=== PATIENT | female | born 1940 | race Caucasian/White ===

== ENCOUNTER 2023-04-02 16:56 | Inpatient (IN) | payer BC, MEDICAID, OTHER ==
[~2023-04-02] VITALS: Ht 160 cm; Wt 76.2 kg
[2023-04-02] MEDS: VANCOMYCIN HCL 1,000 MG in NS 250 ML IV ONE (01:41)
[~2023-04-02 16:56] MED LIST: ASPIRIN; BENA-6 PO; SIMV-43 PO
[2023-04-02 16:58] VITALS: BP_SYST 130; PULSE 181; RESP 19; TEMP 98.2; O2SAT 94
[2023-04-02] MEDS: dilTIAZem HCL IVP 5 MG/ML VIAL IVP ONE ×2 (17:35→18:22)
[2023-04-02 17:46] LABS: HEMATOCRIT 43.9 % (36-48); HEMOGLOBIN 14.6 g/dL (12.0-16.0); MEAN CORPUSCULAR HEMOGLOBIN 31 pg (27-31); MEAN CORPUSCULAR HGB CONC 33 % (32-36); MEAN CORPUSCULAR VOLUME 94 fL (79.0-98.0); PLATELET COUNT (AUTO) 209 K/uL (130-430); RED BLOOD CELL COUNT(AUTO) 4.68 MIL/uL (4.2-6.2); RED CELL DISTRIBUTION WIDTH 13.2 % (9.0-15.0); WHITE BLOOD COUNT (AUTO) 19.5 K/uL (4.8-10.8)
[2023-04-02 18:14] LABS: ANION GAP 11 (5-15); CALCIUM 10.1 mg/dL (8.4-11.0); CARBON DIOXIDE 25 mmol/L (23-29); CHLORIDE 99 mmol/L (98-107); CREATININE 1.63 mg/dL (0.55-1.30); GLUCOSE 210 mg/dL (74-106); POTASSIUM 3.1 mmol/L (3.5-5.1); SODIUM SERUM 135 mmol/L (136-145); UREA NITROGEN, BLOOD 57 mg/dL (8-21)
[2023-04-02 18:21] LABS: ALANINE AMINOTRANSFERASE 36 U/L (12-78); ASPARTATE AMINOTRANSFERASE 21 U/L (10-37); TOTAL PROTEIN, SERUM 6.5 g/dL (6.4-8.3)
[2023-04-02] MEDS: NACL 0.9% 3,000 ML IV STA (18:27)
[2023-04-02 18:33] LABS: BAND % (MANUAL) 13 % (0-6); BASOPHILS % (MANUAL) 0 % (0-2); EOSINOPHILS % (MANUAL) 1 % (0-7); LYMPHOCYTES % (MANUAL) 4 % (20-46); MONOCYTES % (MANUAL) 5 % (0-11)
[2023-04-02 18:34] LABS: INR 1.1 (0.8-1.2); OVALOCYTES FEW; PLATELET ESTIMATE ADEQUATE (ADEQUATE); PROTHROMBIN TIME 11.7 SECS (9.5-12.5); TEAR DROP CELLS FEW
[2023-04-02] MEDS ORDERED: PIPERACILLIN/TAZOBACTAM 3.375 GM/VIAL (ZOSYN) IV ONE (18:43)
[2023-04-02] MEDS: PIPERACILLIN/TAZO 3.375 GM in NS 50 ML IV ONE (18:47)
[2023-04-02] MEDS ORDERED: AMIODARONE HCL 150 MG/3ML VIAL ONE (19:43)
[2023-04-02] MEDS: KCL 20 mEq in 100 mL (PREMIX) 100 ML IV ONE (19:45)
[2023-04-02] MEDS: AMIODARONE HCL 150 MG in D5W 97 ML IV ONE (19:55)
[2023-04-02] MEDS: AMIODARONE HCL 450 MG in D5W 241 ML IV ONE (20:18)
[2023-04-02] MEDS ORDERED: VANCOMYCIN HCL 1000 MG/VIAL IV ONE (21:05)
[2023-04-02] MEDS: METOPROLOL TARTRATE 5 MG/5 ML VIAL IVP ONE (21:13)
[2023-04-02] MEDS: NACL 0.9% 1,000 ML IV ONE (21:25)
[2023-04-02] MEDS: D5/0.45 NS 1,000 ML IV SCH (23:00)
[2023-04-02] MEDS: METOPROLOL SUCCINATE 25 MG TAB.SR.24H (TOPROL XL) PO SCH (23:30)
[2023-04-02 23:35] VITALS: BP_SYST 116; PULSE 140; RESP 16; TEMP 97.5; O2SAT 95
[2023-04-03] VITALS (23 sets, daily range): BP systolic 99–171; PULSE 88–142; RESP 19–29; TEMP 97.1–97.7; O2SAT 91–98
[2023-04-03] MEDS: METOPROLOL SUCCINATE 25 MG TAB.SR.24H (TOPROL XL) PO ONE (00:10)
[2023-04-03] MEDS: VANCOMYCIN HCL 1000 MG/VIAL IV ONE (01:40)
[2023-04-03] MEDS: AMIODARONE HCL 450 MG/9 ML VIAL IV ONE (05:20)
[2023-04-03 05:43] LABS: BILIRUBIN,URINE 2+ (NEGATIVE); BLOOD, URINE NEGATIVE (NEGATIVE); GLUCOSE,URINE NEGATIVE (NEGATIVE); KETONES,URINE TRACE (NEGATIVE); LEUKOCYTE ESTERASE ,URINE NEGATIVE (NEGATIVE); NITRITE, URINE NEGATIVE (NEGATIVE); PROTEIN URINE TRACE (NEGATIVE)
[2023-04-03 05:54] LABS: INFLUENZA TYPE A Negative (NEGATIVE); INFLUENZA TYPE B NEGATIVE (NEGATIVE)
[2023-04-03 06:00] LABS: CLARITY/URINE CLEAR (CLEAR); COLOR,URINE AMBER (YELLOW)
[2023-04-03 06:03] LABS: BACTERIA,URINE RARE /HPF (None Seen); RBC,URINE 0-3 /HPF (0-3); WBC,URINE 0-3 /HPF (0-3)
[2023-04-03] MEDS: AMIODARONE HCL 450 MG in D5W 241 ML IV SCH (06:30)
[2023-04-03 08:00] LABS: ANION GAP 13 (5-15); CALCIUM 8.6 mg/dL (8.4-11.0); CARBON DIOXIDE 22 mmol/L (23-29); CHLORIDE 105 mmol/L (98-107); CREATININE 1.25 mg/dL (0.55-1.30); GLUCOSE 206 mg/dL (74-106); POTASSIUM 3.2 mmol/L (3.5-5.1); SODIUM SERUM 140 mmol/L (136-145); UREA NITROGEN, BLOOD 51 mg/dL (8-21)
[2023-04-03] MEDS: DIGOXIN 0.5 MG/2 ML AMP IVP ONE ×2 (10:11→21:18)
[2023-04-03] MEDS: POTASSIUM CHLORIDE 20 MEQ TABLET.ER PO ONE (11:03)
[2023-04-03] MEDS: PIPERACILLIN/TAZO 4.5GM/DEX-IS 100 ML IV SCH (14:11)
[2023-04-03] MEDS: METOPROLOL TARTRATE 25 MG TABLET PO SCH (14:12)
[2023-04-03] MEDS: DIGOXIN 0.125 MG TABLET PO ONE (15:43)
[2023-04-03] MEDS: APIXABAN 2.5 MG TABLET PO SCH (21:16)
[2023-04-04] VITALS (23 sets, daily range): BP systolic 110–163; PULSE 87–119; RESP 19–35; TEMP 97.1–99; O2SAT 93–96
[2023-04-04 05:20] LABS: LYMPHOCYTES # (AUTO) 0.7 K/uL (1.0-5.5); LYMPHOCYTES % (AUTO) 3.6 % (20.5-51.5); MEAN CORPUSCULAR HEMOGLOBIN 31 pg (27-31); MEAN CORPUSCULAR HGB CONC 33 % (32-36); MEAN CORPUSCULAR VOLUME 94 fL (79.0-98.0); MONOCYTES % (AUTO) 4.8 % (1.7-9.3); NEUTROPHILS # (AUTO) 18.6 K/uL (1.8-7.7); NEUTROPHILS % (AUTO) 91.6 % (40.0-70.0); PLATELET COUNT (AUTO) 199 K/uL (130-430); RED BLOOD CELL COUNT(AUTO) 3.94 MIL/uL (4.2-6.2); RED CELL DISTRIBUTION WIDTH 13.5 % (9.0-15.0); WHITE BLOOD COUNT (AUTO) 20.3 K/uL (4.8-10.8)
[2023-04-04 09:22] LABS: ANION GAP 5 (5-15); CALCIUM 9.1 mg/dL (8.4-11.0); CARBON DIOXIDE 26 mmol/L (23-29); CHLORIDE 107 mmol/L (98-107); CREATININE 1.12 mg/dL (0.55-1.30); GLUCOSE 231 mg/dL (74-106); POTASSIUM 3.5 mmol/L (3.5-5.1); SODIUM SERUM 138 mmol/L (136-145); UREA NITROGEN, BLOOD 33 mg/dL (8-21)
[2023-04-04] MEDS: DIGOXIN 0.25 MG TABLET PO SCH (09:56)
[2023-04-04] MEDS: METOPROLOL TARTRATE 50 MG TABLET PO SCH (09:57)
[2023-04-04] MEDS: AZITHROMYCIN 500 MG in NS 250 ML IV SCH (16:04)
[2023-04-05] VITALS (20 sets, daily range): BP systolic 113–176; PULSE 86–135; RESP 19–39; TEMP 97.4–98.5; O2SAT 89–98
[2023-04-05 06:29] LABS: BASOPHILS % (AUTO) 0.1 % (0.0-2.0); HEMATOCRIT 38.9 % (36-48); HEMOGLOBIN 12.8 g/dL (12.0-16.0); LYMPHOCYTES # (AUTO) 0.7 K/uL (1.0-5.5); LYMPHOCYTES % (AUTO) 3.3 % (20.5-51.5); MEAN CORPUSCULAR HEMOGLOBIN 31 pg (27-31); MEAN CORPUSCULAR HGB CONC 33 % (32-36); MEAN CORPUSCULAR VOLUME 94 fL (79.0-98.0); MONOCYTES % (AUTO) 4.8 % (1.7-9.3); NEUTROPHILS # (AUTO) 19.7 K/uL (1.8-7.7); PLATELET COUNT (AUTO) 228 K/uL (130-430); RED BLOOD CELL COUNT(AUTO) 4.14 MIL/uL (4.2-6.2); RED CELL DISTRIBUTION WIDTH 13.4 % (9.0-15.0); WHITE BLOOD COUNT (AUTO) 21.5 K/uL (4.8-10.8)
[2023-04-05 06:36] LABS: ANION GAP 8 (5-15); CALCIUM 8.8 mg/dL (8.4-11.0); CARBON DIOXIDE 24 mmol/L (23-29); CHLORIDE 106 mmol/L (98-107); CREATININE 1.08 mg/dL (0.55-1.30); GLUCOSE 265 mg/dL (74-106); POTASSIUM 3.4 mmol/L (3.5-5.1); SODIUM SERUM 138 mmol/L (136-145); UREA NITROGEN, BLOOD 26 mg/dL (8-21)
[2023-04-05 07:23] LABS: NEUTROPHILS % (AUTO) 91.8 % (40.0-70.0)
[2023-04-05] MEDS: POTASSIUM CHLORIDE 20 MEQ TABLET.ER PO ONE ×2 (08:57→13:13)
[2023-04-05] MEDS: METOPROLOL TARTRATE 5 MG/5 ML VIAL IVP PRN (09:15)
[2023-04-05] MEDS: DILTIAZEM HCL 30 MG TABLET PO ONE (11:22)
[2023-04-05] MEDS ORDERED: *HEPARIN PER PHARMACY XX PRN (13:45)
[2023-04-05] MEDS: NACL 0.9% 1,000 ML IV SCH (14:06)
[2023-04-05] MEDS ORDERED: HEPARIN SODIUM,PORCINE 3000 UNITS/0.6 ML BOLUS IVP PRN (14:15)
[2023-04-05] MEDS ORDERED: HEPARIN SODIUM,PORCINE 2000 UNITS/0.4 ML BOLUS IVP PRN (14:15)
[2023-04-05] MEDS: HEPARIN SODIUM,PORCINE 5,000 UNITS/ML VIAL IVP ONE (14:53)
[2023-04-05] MEDS: HEPARIN 25,000 UNITS in 250 ML PREMIX IV PRN (14:53)
[2023-04-05] MEDS: ISOSORBIDE MONONITRATE 30 MG TAB.ER.24H PO ONE (16:22)
[2023-04-05] MEDS: LORazepam 1 MG TABLET PO PRN (16:27)
[2023-04-05] MEDS: DILTIAZEM HCL 30 MG TABLET PO SCH (18:30)
[2023-04-05] MEDS: QUEtiapine FUMARATE 25 MG TABLET PO SCH (21:36)
[2023-04-06] VITALS (20 sets, daily range): BP systolic 136–166; PULSE 87–163; RESP 18–40; TEMP 97.8–98.6; O2SAT 92–99
[2023-04-06] MEDS: dilTIAZem HCL IVP 5 MG/ML VIAL IVP PRN ×2 (05:16→15:25)
[2023-04-06 06:46] LABS: ALANINE AMINOTRANSFERASE 52 U/L (12-78); ALBUMIN 1.5 g/dL (3.4-4.8); ANION GAP 8 (5-15); ASPARTATE AMINOTRANSFERASE 44 U/L (10-37); CALCIUM 8.6 mg/dL (8.4-11.0); CARBON DIOXIDE 24 mmol/L (23-29); CHLORIDE 104 mmol/L (98-107); CREATININE 0.98 mg/dL (0.55-1.30); GLUCOSE 264 mg/dL (74-106); POTASSIUM 3.8 mmol/L (3.5-5.1); SODIUM SERUM 136 mmol/L (136-145); TOTAL PROTEIN, SERUM 5.5 g/dL (6.4-8.3); UREA NITROGEN, BLOOD 18 mg/dL (8-21)
[2023-04-06 07:16] LABS: BASOPHILS % (AUTO) 0.1 % (0.0-2.0); EOSINOPHILS % (AUTO) 0.3 % (0.0-4.0); HEMATOCRIT 37.8 % (36-48); HEMOGLOBIN 12.2 g/dL (12.0-16.0); LYMPHOCYTES # (AUTO) 0.8 K/uL (1.0-5.5); LYMPHOCYTES % (AUTO) 4.7 % (20.5-51.5); MEAN CORPUSCULAR HEMOGLOBIN 31 pg (27-31); MEAN CORPUSCULAR HGB CONC 32 % (32-36); MEAN CORPUSCULAR VOLUME 94 fL (79.0-98.0); MONOCYTES # (AUTO) 0.9 K/uL (0.0-1.0); MONOCYTES % (AUTO) 5.5 % (1.7-9.3); NEUTROPHILS # (AUTO) 14.6 K/uL (1.8-7.7); NEUTROPHILS % (AUTO) 89.4 % (40.0-70.0); PLATELET COUNT (AUTO) 262 K/uL (130-430); RED BLOOD CELL COUNT(AUTO) 4.01 MIL/uL (4.2-6.2); RED CELL DISTRIBUTION WIDTH 13.5 % (9.0-15.0); WHITE BLOOD COUNT (AUTO) 16.3 K/uL (4.8-10.8)
[2023-04-06] MEDS: AMIODARONE HCL 150 MG in D5W 100 ML IV ONE (07:30)
[2023-04-06] MEDS: ISOSORBIDE MONONITRATE 30 MG TAB.ER.24H PO SCH (09:23)
[2023-04-06] MEDS: AMIODARONE HCL 450 MG in D5W 241 ML IV SCH (10:25)
[2023-04-06] MEDS ORDERED: dilTIAZem HCL IVP 5 MG/ML VIAL IVP PRN (14:00)
[2023-04-06] MEDS ORDERED: DILTIAZEM HCL 30 MG TABLET PO SCH (19:00)
[2023-04-06] MEDS: IPRATROPIUM/ALBUTEROL SULFATE 3 ML AMPUL.NEB (DUONEB) INH SCH (19:00)
[2023-04-06] MEDS: METOPROLOL TARTRATE 50 MG TABLET PO SCH (19:00)
[2023-04-06] MEDS: AMIODARONE HCL 450 MG/9 ML VIAL IV ONE (20:30)
[2023-04-06] MEDS: PANTOPRAZOLE SODIUM 40 MG/VIAL (PROTONIX) ONE (22:18)
[2023-04-06] MEDS: PANTOPRAZOLE SODIUM 40 MG/VIAL (PROTONIX) IVP SCH (22:32)
[2023-04-07] VITALS (31 sets, daily range): BP systolic 113–174; PULSE 97–154; RESP 15–38; TEMP 96.8–97.8; O2SAT 37–100
[2023-04-07 06:51] LABS: HEMOGLOBIN 8.4 g/dL (12.0-16.0); LYMPHOCYTES # (AUTO) 0.8 K/uL (1.0-5.5); LYMPHOCYTES % (AUTO) 5.3 % (20.5-51.5); MEAN CORPUSCULAR HEMOGLOBIN 30 pg (27-31); MEAN CORPUSCULAR HGB CONC 32 % (32-36); MEAN CORPUSCULAR VOLUME 94 fL (79.0-98.0); MONOCYTES # (AUTO) 0.8 K/uL (0.0-1.0); MONOCYTES % (AUTO) 5.2 % (1.7-9.3); NEUTROPHILS # (AUTO) 13.7 K/uL (1.8-7.7); NEUTROPHILS % (AUTO) 89.5 % (40.0-70.0); PLATELET COUNT (AUTO) 255 K/uL (130-430); RED BLOOD CELL COUNT(AUTO) 2.77 MIL/uL (4.2-6.2); RED CELL DISTRIBUTION WIDTH 13.3 % (9.0-15.0); WHITE BLOOD COUNT (AUTO) 15.3 K/uL (4.8-10.8)
[2023-04-07 07:29] LABS: ALANINE AMINOTRANSFERASE 36 U/L (12-78); ALBUMIN 1.5 g/dL (3.4-4.8); ANION GAP 6 (5-15); CARBON DIOXIDE 26 mmol/L (23-29); CHLORIDE 107 mmol/L (98-107); CREATININE 1.04 mg/dL (0.55-1.30); GLUCOSE 338 mg/dL (74-106); POTASSIUM 3.7 mmol/L (3.5-5.1); SODIUM SERUM 139 mmol/L (136-145); TOTAL BILIRUBIN 1.1 mg/dL (0.0-1.0); UREA NITROGEN, BLOOD 29 mg/dL (8-21)
[2023-04-07 08:34] LABS: ASPARTATE AMINOTRANSFERASE 18 U/L (10-37)
[2023-04-07] MEDS: PANTOPRAZOLE SODIUM 40 MG/VIAL (PROTONIX) IVP SCH (09:15)
[2023-04-07] MEDS: METOCLOPRAMIDE HCL 10 MG/2 ML VIAL IVP ONE (09:16)
[2023-04-07 12:04] LABS: INR 1.1 (0.8-1.2); PROTHROMBIN TIME 10.9 SECS (9.5-12.5)
[2023-04-07] MEDS: DIGOXIN 0.5 MG/2 ML AMP IVP ONE (12:10)
[2023-04-07] MEDS: METOPROLOL TARTRATE 5 MG/5 ML VIAL IVP SCH (12:12)
[2023-04-07] MEDS: PANTOPRAZOLE SODIUM 40 MG in NS 50 ML IV SCH (14:26)
[2023-04-07] MEDS: fentaNYL CITRATE/PF 100 MCG/2 ML AMP ONE (21:08)
[2023-04-07] MEDS: MIDAZOLAM HCL 5 MG/5 ML VIAL ONE (21:09)
[2023-04-08] VITALS (28 sets, daily range): BP systolic 125–166; PULSE 81–127; RESP 14–33; TEMP 97.4–98.3; O2SAT 96–100
[2023-04-08 06:02] LABS: BASOPHILS % (AUTO) 0.1 % (0.0-2.0); EOSINOPHILS # (AUTO) 0.1 K/uL (0.0-0.4); EOSINOPHILS % (AUTO) 0.6 % (0.0-4.0); HEMATOCRIT 28.8 % (36-48); HEMOGLOBIN 9.5 g/dL (12.0-16.0); LYMPHOCYTES # (AUTO) 0.6 K/uL (1.0-5.5); LYMPHOCYTES % (AUTO) 5.5 % (20.5-51.5); MEAN CORPUSCULAR HEMOGLOBIN 31 pg (27-31); MEAN CORPUSCULAR HGB CONC 33 % (32-36); MEAN CORPUSCULAR VOLUME 94 fL (79.0-98.0); MONOCYTES # (AUTO) 0.7 K/uL (0.0-1.0); MONOCYTES % (AUTO) 6.9 % (1.7-9.3); NEUTROPHILS # (AUTO) 9.3 K/uL (1.8-7.7); NEUTROPHILS % (AUTO) 86.9 % (40.0-70.0); PLATELET COUNT (AUTO) 247 K/uL (130-430); RED BLOOD CELL COUNT(AUTO) 3.07 MIL/uL (4.2-6.2); RED CELL DISTRIBUTION WIDTH 13.1 % (9.0-15.0); WHITE BLOOD COUNT (AUTO) 10.7 K/uL (4.8-10.8)
[2023-04-08 06:29] LABS: ALANINE AMINOTRANSFERASE 34 U/L (12-78); ALBUMIN 1.7 g/dL (3.4-4.8); ANION GAP 7 (5-15); ASPARTATE AMINOTRANSFERASE 22 U/L (10-37); CALCIUM 8.8 mg/dL (8.4-11.0); CARBON DIOXIDE 26 mmol/L (23-29); CHLORIDE 109 mmol/L (98-107); CREATININE 0.99 mg/dL (0.55-1.30); GLUCOSE 245 mg/dL (74-106); POTASSIUM 3.3 mmol/L (3.5-5.1); SODIUM SERUM 142 mmol/L (136-145); TOTAL BILIRUBIN 0.9 mg/dL (0.0-1.0); UREA NITROGEN, BLOOD 20 mg/dL (8-21)
[2023-04-08 08:10] LABS: PROTHROMBIN TIME 10.7 SECS (9.5-12.5)
[2023-04-08] MEDS: POTASSIUM CHLORIDE 40 MEQ in NS 250 ML IV ONE (10:00)
[2023-04-08] MEDS: DIGOXIN 0.5 MG/2 ML AMP IVP SCH (10:01)
[2023-04-08] MEDS: METOPROLOL SUCCINATE 25 MG TAB.SR.24H (TOPROL XL) PO ONE (11:00)
[2023-04-08] MEDS: SUCRALFATE 1 GM/10 ML UDC GT SCH (11:30)
[2023-04-08] MEDS: ONDANSETRON HCL 4 MG/2 ML VIAL IVP PRN (12:55)
[2023-04-08] MEDS: metroNIDAZOLE 500 mg/NS 100 ML IV SCH (21:54)
[2023-04-09] VITALS (26 sets, daily range): BP systolic 106–166; PULSE 87–126; RESP 12–37; TEMP 97.3–98.6; O2SAT 94–99
[2023-04-09 05:20] LABS: BASOPHILS % (AUTO) 0.3 % (0.0-2.0); EOSINOPHILS # (AUTO) 0.1 K/uL (0.0-0.4); EOSINOPHILS % (AUTO) 0.6 % (0.0-4.0); HEMATOCRIT 31.5 % (36-48); HEMOGLOBIN 10.3 g/dL (12.0-16.0); LYMPHOCYTES % (AUTO) 8.7 % (20.5-51.5); MEAN CORPUSCULAR HEMOGLOBIN 30 pg (27-31); MEAN CORPUSCULAR HGB CONC 33 % (32-36); MEAN CORPUSCULAR VOLUME 92 fL (79.0-98.0); MONOCYTES # (AUTO) 0.9 K/uL (0.0-1.0); MONOCYTES % (AUTO) 7.7 % (1.7-9.3); NEUTROPHILS # (AUTO) 9.7 K/uL (1.8-7.7); NEUTROPHILS % (AUTO) 82.7 % (40.0-70.0); PLATELET COUNT (AUTO) 233 K/uL (130-430); RED BLOOD CELL COUNT(AUTO) 3.42 MIL/uL (4.2-6.2); RED CELL DISTRIBUTION WIDTH 14.4 % (9.0-15.0); WHITE BLOOD COUNT (AUTO) 11.7 K/uL (4.8-10.8)
[2023-04-09 05:44] LABS: ANION GAP 10 (5-15); CALCIUM 8.7 mg/dL (8.4-11.0); CARBON DIOXIDE 21 mmol/L (23-29); CHLORIDE 109 mmol/L (98-107); CREATININE 0.86 mg/dL (0.55-1.30); GLUCOSE 223 mg/dL (74-106); POTASSIUM 3.9 mmol/L (3.5-5.1); SODIUM SERUM 140 mmol/L (136-145); UREA NITROGEN, BLOOD 15 mg/dL (8-21)
[2023-04-09] MEDS ORDERED: METOPROLOL SUCCINATE 25 MG TAB.SR.24H (TOPROL XL) PO SCH (09:00)
[2023-04-09] MEDS: QUEtiapine FUMARATE 25 MG TABLET PO SCH (09:07)
[2023-04-09] MEDS: DIGOXIN 0.25 MG TABLET PO SCH (09:07)
[2023-04-09] MEDS: METOPROLOL TARTRATE 50 MG TABLET PO SCH (09:07)
[2023-04-09] MEDS: PANTOPRAZOLE SODIUM 40 MG/VIAL (PROTONIX) IVP ONE (09:55)
[2023-04-09] MEDS ORDERED: QUEtiapine FUMARATE 25 MG TABLET PO SCH (21:00)
[2023-04-09] MEDS: PANTOPRAZOLE SODIUM 40 MG/VIAL (PROTONIX) IVP SCH (21:08)
[2023-04-10] VITALS (10 sets, daily range): BP systolic 120–144; PULSE 68–120; RESP 16–20; TEMP 97.2–98.8; O2SAT 92–97
[2023-04-10] MEDS: *LOVENOX0.75MG/KG Q12H/PHARMACY XX ONE (13:00)
[2023-04-10] MEDS: METOPROLOL TARTRATE 50 MG TABLET PO ONE (13:18)
[2023-04-10] MEDS: METOPROLOL TARTRATE 50 MG TABLET PO SCH (14:14)
[2023-04-10] MEDS: DIGOXIN 0.25 MG TABLET ONE (14:17)
[2023-04-10] MEDS: ENOXAPARIN SODIUM 60 MG/0.6 ML SYRINGE SUBCUT ONE (16:55)
[2023-04-10] MEDS: SUCRALFATE 1 GM/10 ML UDC GT SCH (16:58)
[2023-04-10] MEDS: QUEtiapine FUMARATE 25 MG TABLET PO SCH (21:46)
[2023-04-10] MEDS: ENOXAPARIN SODIUM 60 MG/0.6 ML SYRINGE SUBCUT SCH (21:46)
[2023-04-11] VITALS (9 sets, daily range): BP systolic 108–141; PULSE 73–122; RESP 17–20; TEMP 97.7–98.5; O2SAT 95–98
[2023-04-11] MEDS: DIGOXIN 0.25 MG TABLET PO SCH (09:31)
== END 2023-04-11 19:00 | DRG 871 ==
LOC: SED 16:56 → SIC 21:20 → STU 04-09 19:30
PROVIDERS: ADMIT Specialist; ATTEND Specialist
PROC: XW0G886 Introduction of Mineral-based Topical Hemostatic Agent into Upper GI, Via Natural or Artificial Opening Endoscopic, New Technology Group 6 (ICD-10-PCS; 2023-04-07)
PROC: 30233N1 Transfusion of Nonautologous Red Blood Cells into Peripheral Vein, Percutaneous Approach (ICD-10-PCS; 2023-04-07)
PROC: 0DB98ZX Excision of Duodenum, Via Natural or Artificial Opening Endoscopic, Diagnostic (ICD-10-PCS; principal; 2023-04-07 16:00)
PROC: 0DB68ZX Excision of Stomach, Via Natural or Artificial Opening Endoscopic, Diagnostic (ICD-10-PCS; 2023-04-07 16:00)
DX: A41.9 Sepsis, unspecified organism (principal); J15.9 Unspecified bacterial pneumonia; J69.0 Pneumonitis due to inhalation of food and vomit; J96.21 Acute and chronic respiratory failure with hypoxia; K26.4 Chronic or unspecified duodenal ulcer with hemorrhage; N17.9 Acute kidney failure, unspecified; G93.40 Encephalopathy, unspecified; D62 Acute posthemorrhagic anemia; I82.621 Acute embolism and thrombosis of deep veins of right upper extremity; E87.6 Hypokalemia; I48.0 Paroxysmal atrial fibrillation; E78.5 Hyperlipidemia, unspecified; K20.90 Esophagitis, unspecified without bleeding; K29.00 Acute gastritis without bleeding; Z20.822 Contact with and (suspected) exposure to COVID-19; E03.9 Hypothyroidism, unspecified; I10 Essential (primary) hypertension; R65.20 Severe sepsis without septic shock; F03.90 Unspecified dementia, unspecified severity, without behavioral disturbance, psychotic disturbance, mood disturbance, and anxiety; Z86.73 Personal history of transient ischemic attack (TIA), and cerebral infarction without residual deficits; Z79.01 Long term (current) use of anticoagulants; Z79.899 Other long term (current) drug therapy
CPT/HCPCS: 36415; 43239; 43255; 70450-TC; 71045; 76376; 80048; 80053; 81000; 81001; 81015; 83037; 83605; 83880; 84484; 85007; 85025; 85027; 85610; 85730; 86886; 86900; 86901; 86920; 87040; 87081; 88305; 88312; 88313; 90935; 92610-GN; 93005; 93971; 94640; 94760; 96365; 96367; 96375; 97110-GP; 97530-GP; 99291; 99292; C1052; C9113; G0378; J0282; J0456; J0696; J1160; J1644; J1650; J2250; J2405; J2543; J2765; J3010; J3370; J3480; J3490; J7050; J7060; P9021

== ENCOUNTER 2023-05-08 15:55 | Inpatient (IN) | payer OTHER ==
[~2023-05-08] VITALS: Ht 160 cm; Wt 74.0 kg
[2023-05-08 16:01] VITALS: BP_SYST 109; PULSE 135; RESP 19; TEMP 98; O2SAT 98
[2023-05-08 16:45] LABS: BASOPHILS # (AUTO) 0.1 K/uL (0.0-0.2); BASOPHILS % (AUTO) 1.2 % (0.0-2.0); EOSINOPHILS # (AUTO) 0.1 K/uL (0.0-0.4); EOSINOPHILS % (AUTO) 1.4 % (0.0-4.0); HEMATOCRIT 31.3 % (36-48); HEMOGLOBIN 10.4 g/dL (12.0-16.0); LYMPHOCYTES % (AUTO) 14.8 % (20.5-51.5); MEAN CORPUSCULAR HEMOGLOBIN 32 pg (27-31); MEAN CORPUSCULAR HGB CONC 33 % (32-36); MEAN CORPUSCULAR VOLUME 96 fL (79.0-98.0); MONOCYTES # (AUTO) 0.6 K/uL (0.0-1.0); NEUTROPHILS # (AUTO) 5.1 K/uL (1.8-7.7); NEUTROPHILS % (AUTO) 73.6 % (40.0-70.0); PLATELET COUNT (AUTO) 208 K/uL (130-430); RED BLOOD CELL COUNT(AUTO) 3.27 MIL/uL (4.2-6.2); RED CELL DISTRIBUTION WIDTH 18.8 % (9.0-15.0); WHITE BLOOD COUNT (AUTO) 6.9 K/uL (4.8-10.8)
[2023-05-08 17:10] LABS: ANION GAP 4 (5-15); CALCIUM 8.3 mg/dL (8.4-11.0); CARBON DIOXIDE 34 mmol/L (23-29); CHLORIDE 108 mmol/L (98-107); CREATININE 0.98 mg/dL (0.55-1.30); GLUCOSE 182 mg/dL (74-106); POTASSIUM 3.4 mmol/L (3.5-5.1); SODIUM SERUM 146 mmol/L (136-145); UREA NITROGEN, BLOOD 13 mg/dL (8-21)
[2023-05-08 17:17] LABS: ALANINE AMINOTRANSFERASE 15 U/L (12-78); ASPARTATE AMINOTRANSFERASE 22 U/L (10-37); BILIRUBIN,DIRECT 0.3 mg/dL (0.0-0.3); TOTAL BILIRUBIN 0.8 mg/dL (0.0-1.0); TOTAL PROTEIN, SERUM 5.8 g/dL (6.4-8.3)
[2023-05-08 17:33] LABS: INR 1.3 (0.8-1.2); PROTHROMBIN TIME 13.1 SECS (9.5-12.5)
[2023-05-08] MEDS ORDERED: PIPERACILLIN/TAZOBACTAM 4.5 GM/VIAL (ZOSYN) IV ONE (18:20)
[2023-05-08] MEDS: NACL 0.9% 1,000 ML IV ONE (18:22)
[2023-05-08] MEDS: PIPERACILLIN/TAZO 4.5 GM in NS 100 ML IV ONE (18:22)
[2023-05-08] MEDS: lisinopriL 20 MG TABLET PO SCH (21:00)
[2023-05-08] MEDS ORDERED: ACETAMINOPHEN 325 MG TABLET PO PRN (21:45)
[2023-05-08] MEDS ORDERED: ONDANSETRON HCL 4 MG/2 ML VIAL IVP PRN (21:45)
[2023-05-08] MEDS ORDERED: NALOXONE HCL 0.4 MG/ML AMP (NARCAN) IVP PRN ×2 (21:45)
[2023-05-08] MEDS ORDERED: LORazepam 2 MG/ML VIAL IVP PRN (21:45)
[2023-05-08] MEDS ORDERED: HYDROcodone/ACETAMIN 10-325 MG TAB PO PRN (21:45)
[2023-05-08] MEDS ORDERED: HYDROcodone/ACETAMIN 5-325 MG TAB (NORCO/ VICODIN) PO PRN (21:45)
[2023-05-08] MEDS: METOPROLOL TARTRATE 5 MG/5 ML VIAL IV ONE (21:46)
[2023-05-09] VITALS: BP_SYST 115; PULSE 89; RESP 18; TEMP 98.3; O2SAT 96
[2023-05-09] MEDS: METOPROLOL TARTRATE 5 MG/5 ML VIAL IVP ONE (01:40)
[2023-05-09] MEDS: DIGOXIN 0.5 MG/2 ML AMP IVP ONE ×3 (02:16→17:45)
[2023-05-09 05:40] LABS: BASOPHILS # (AUTO) 0.1 K/uL (0.0-0.2); BASOPHILS % (AUTO) 1.1 % (0.0-2.0); EOSINOPHILS # (AUTO) 0.2 K/uL (0.0-0.4); EOSINOPHILS % (AUTO) 2.9 % (0.0-4.0); HEMATOCRIT 27.4 % (36-48); HEMOGLOBIN 9.3 g/dL (12.0-16.0); LYMPHOCYTES # (AUTO) 0.8 K/uL (1.0-5.5); LYMPHOCYTES % (AUTO) 10.5 % (20.5-51.5); MEAN CORPUSCULAR HEMOGLOBIN 32 pg (27-31); MEAN CORPUSCULAR HGB CONC 34 % (32-36); MEAN CORPUSCULAR VOLUME 95 fL (79.0-98.0); MONOCYTES # (AUTO) 0.6 K/uL (0.0-1.0); MONOCYTES % (AUTO) 8.9 % (1.7-9.3); NEUTROPHILS # (AUTO) 5.5 K/uL (1.8-7.7); NEUTROPHILS % (AUTO) 76.6 % (40.0-70.0); PLATELET COUNT (AUTO) 201 K/uL (130-430); RED BLOOD CELL COUNT(AUTO) 2.89 MIL/uL (4.2-6.2); RED CELL DISTRIBUTION WIDTH 19.2 % (9.0-15.0); WHITE BLOOD COUNT (AUTO) 7.2 K/uL (4.8-10.8)
[2023-05-09 05:42] LABS: ALANINE AMINOTRANSFERASE 17 U/L (12-78); ALBUMIN 1.7 g/dL (3.4-4.8); ANION GAP 4 (5-15); ASPARTATE AMINOTRANSFERASE 18 U/L (10-37); CALCIUM 7.9 mg/dL (8.4-11.0); CARBON DIOXIDE 33 mmol/L (23-29); CHLORIDE 112 mmol/L (98-107); CREATININE 0.81 mg/dL (0.55-1.30); GLUCOSE 136 mg/dL (74-106); PHOSPHORUS 3.1 mg/dL (2.7-4.5); POTASSIUM 3.5 mmol/L (3.5-5.1); SODIUM SERUM 149 mmol/L (136-145); TOTAL BILIRUBIN 0.9 mg/dL (0.0-1.0); UREA NITROGEN, BLOOD 11 mg/dL (8-21)
[2023-05-09 08:00] VITALS: BP_SYST 156; PULSE 111; RESP 20; TEMP 98.1; O2SAT 97
[2023-05-09 11:12] VITALS: BP_SYST 119; PULSE 117; RESP 16; TEMP 98; O2SAT 99
[2023-05-09] MEDS: METOPROLOL TARTRATE 50 MG TABLET PO SCH (14:00)
[2023-05-09] MEDS: FUROSEMIDE 40 MG/4 ML VIAL IVP ONE (14:52)
[2023-05-09 15:08] VITALS: BP_SYST 111; PULSE 138; RESP 16; TEMP 97.9; O2SAT 92
[2023-05-09 16:17] LABS: SOURCE/TYPE ,BODY FLUID THORACENTESIS
[2023-05-09 16:19] LABS: BF APPEARANCE UNSPUN CLOUDY (CLEAR); BODY FLUID SOURCE/ TYPE THORACENTESIS
[2023-05-09 16:20] LABS: BODY FLUID COLOR YELLOW (LT YELLOW); BODY FLUID TOTAL VOLUME 800 mL
[2023-05-09 18:59] LABS: APPEARANCE,SPUN,BODY FLUID CLEAR (CLEAR); NEUTROPHIL, BODY FLUID 5 %; RBC, BODY FLUID 592 /uL; WBC, BODY FLUID 175 /uL
[2023-05-09 19:00] LABS: LYMPHOCYTES, BODY FLUID 51 %; MONOCYTES,BODY FLUID 44 %
[2023-05-09 20:00] VITALS: O2SAT 98
[2023-05-09] MEDS ORDERED: BENAZEPRIL HCL 20 MG TABLET (LOTENSIN) PO SCH (21:00)
[2023-05-09 21:34] LABS: BODY FLUID GLUCOSE 125 mg/dL; BODY FLUID TOTAL PROTEIN < 2.0 g/dL
[2023-05-09] MEDS ORDERED: MENTHOL/ZINC OXIDE 113 GM OINT. TP PRN (21:45)
[2023-05-09] MEDS: SIMVASTATIN 20 MG TABLET PO SCH (22:42)
[2023-05-10 00:47] VITALS: BP_SYST 120; PULSE 94; RESP 18; TEMP 97.9; O2SAT 97
[2023-05-10 04:00] VITALS: BP_SYST 129; PULSE 115; RESP 18; TEMP 98; O2SAT 95
[2023-05-10 08:00] VITALS: BP_SYST 129; PULSE 114; RESP 22; TEMP 98.2; O2SAT 97
[2023-05-10 08:22] LABS: ANION GAP 5 (5-15); CALCIUM 7.4 mg/dL (8.4-11.0); CARBON DIOXIDE 33 mmol/L (23-29); CHLORIDE 106 mmol/L (98-107); CREATININE 0.82 mg/dL (0.55-1.30); GLUCOSE 112 mg/dL (74-106); POTASSIUM 3.6 mmol/L (3.5-5.1); SODIUM SERUM 144 mmol/L (136-145); UREA NITROGEN, BLOOD 12 mg/dL (8-21)
[2023-05-10 08:29] LABS: BASOPHILS % (AUTO) 0.5 % (0.0-2.0); EOSINOPHILS # (AUTO) 0.2 K/uL (0.0-0.4); EOSINOPHILS % (AUTO) 2.1 % (0.0-4.0); HEMATOCRIT 31.4 % (36-48); HEMOGLOBIN 10.4 g/dL (12.0-16.0); LYMPHOCYTES # (AUTO) 0.9 K/uL (1.0-5.5); MEAN CORPUSCULAR HEMOGLOBIN 32 pg (27-31); MEAN CORPUSCULAR HGB CONC 33 % (32-36); MEAN CORPUSCULAR VOLUME 96 fL (79.0-98.0); MONOCYTES # (AUTO) 0.6 K/uL (0.0-1.0); MONOCYTES % (AUTO) 9.1 % (1.7-9.3); NEUTROPHILS # (AUTO) 5.4 K/uL (1.8-7.7); NEUTROPHILS % (AUTO) 76.3 % (40.0-70.0); PLATELET COUNT (AUTO) 191 K/uL (130-430); RED BLOOD CELL COUNT(AUTO) 3.27 MIL/uL (4.2-6.2); RED CELL DISTRIBUTION WIDTH 19.3 % (9.0-15.0); WHITE BLOOD COUNT (AUTO) 7.1 K/uL (4.8-10.8)
[2023-05-10] MEDS: DIGOXIN 0.5 MG/2 ML AMP IVP SCH (08:57)
[2023-05-10] MEDS: FUROSEMIDE 40 MG/4 ML VIAL IVP SCH (08:57)
[2023-05-10 09:15] LABS: ERYTHROCYTE SEDIMENTATION RATE 12 MM/HR (0-20)
[2023-05-10 11:11] VITALS: BP_SYST 116; PULSE 82; RESP 17; TEMP 98.8; O2SAT 95
[2023-05-10 15:22] VITALS: BP_SYST 100; PULSE 64; RESP 16; TEMP 98; O2SAT 99
[2023-05-10] MEDS: NYSTATIN 15 GM TOPICAL POWDER TP SCH (15:55)
[2023-05-10 20:00] VITALS: O2SAT 98
[2023-05-11 02:22] VITALS: BP_SYST 130; PULSE 74; RESP 19; TEMP 98.6; O2SAT 95
[2023-05-11 07:51] LABS: BASOPHILS % (AUTO) 0.6 % (0.0-2.0); EOSINOPHILS # (AUTO) 0.2 K/uL (0.0-0.4); HEMATOCRIT 33.7 % (36-48); LYMPHOCYTES # (AUTO) 0.8 K/uL (1.0-5.5); LYMPHOCYTES % (AUTO) 12.3 % (20.5-51.5); MEAN CORPUSCULAR HEMOGLOBIN 31 pg (27-31); MEAN CORPUSCULAR HGB CONC 33 % (32-36); MEAN CORPUSCULAR VOLUME 96 fL (79.0-98.0); MONOCYTES # (AUTO) 0.5 K/uL (0.0-1.0); MONOCYTES % (AUTO) 7.6 % (1.7-9.3); NEUTROPHILS % (AUTO) 76.5 % (40.0-70.0); PLATELET COUNT (AUTO) 179 K/uL (130-430); RED BLOOD CELL COUNT(AUTO) 3.52 MIL/uL (4.2-6.2); RED CELL DISTRIBUTION WIDTH 19.2 % (9.0-15.0); WHITE BLOOD COUNT (AUTO) 6.5 K/uL (4.8-10.8)
[2023-05-11 07:57] LABS: ANION GAP 4 (5-15); CALCIUM 7.5 mg/dL (8.4-11.0); CARBON DIOXIDE 34 mmol/L (23-29); CHLORIDE 103 mmol/L (98-107); GLUCOSE 111 mg/dL (74-106); POTASSIUM 3.2 mmol/L (3.5-5.1); SODIUM SERUM 141 mmol/L (136-145); UREA NITROGEN, BLOOD 14 mg/dL (8-21)
[2023-05-11 10:40] VITALS: O2SAT 96
[2023-05-11 11:47] VITALS: BP_SYST 133; PULSE 56; RESP 17; TEMP 98.5; O2SAT 100
[2023-05-11] MEDS: cefTRIAXone 1 GM in D5W 50 ML IV SCH (14:35)
[2023-05-11] MEDS: POTASSIUM CHLORIDE 20 MEQ TABLET.ER PO ONE (14:38)
[2023-05-11 15:46] VITALS: BP_SYST 123; PULSE 100; RESP 16; TEMP 97.3; O2SAT 97
[2023-05-11 20:00] VITALS: BP_SYST 115; PULSE 91; RESP 20; TEMP 98.6; O2SAT 100
[2023-05-11 20:15] VITALS: O2SAT 99
[2023-05-12 02:20] VITALS: RESP 20; TEMP 98.2; O2SAT 99
[2023-05-12 05:04] LABS: ERYTHROCYTE SEDIMENTATION RATE 14 MM/HR (0-20)
[2023-05-12 05:15] LABS: BASOPHILS # (AUTO) 0.1 K/uL (0.0-0.2); BASOPHILS % (AUTO) 0.8 % (0.0-2.0); EOSINOPHILS # (AUTO) 0.2 K/uL (0.0-0.4); EOSINOPHILS % (AUTO) 3.6 % (0.0-4.0); HEMATOCRIT 29.9 % (36-48); HEMOGLOBIN 9.9 g/dL (12.0-16.0); LYMPHOCYTES # (AUTO) 0.8 K/uL (1.0-5.5); LYMPHOCYTES % (AUTO) 11.7 % (20.5-51.5); MEAN CORPUSCULAR HEMOGLOBIN 32 pg (27-31); MEAN CORPUSCULAR HGB CONC 33 % (32-36); MEAN CORPUSCULAR VOLUME 95 fL (79.0-98.0); MONOCYTES # (AUTO) 0.7 K/uL (0.0-1.0); MONOCYTES % (AUTO) 9.7 % (1.7-9.3); NEUTROPHILS % (AUTO) 74.2 % (40.0-70.0); PLATELET COUNT (AUTO) 174 K/uL (130-430); RED BLOOD CELL COUNT(AUTO) 3.14 MIL/uL (4.2-6.2); RED CELL DISTRIBUTION WIDTH 18.8 % (9.0-15.0); WHITE BLOOD COUNT (AUTO) 6.8 K/uL (4.8-10.8)
[2023-05-12 05:34] LABS: ALANINE AMINOTRANSFERASE 13 U/L (12-78); ALBUMIN 1.7 g/dL (3.4-4.8); ANION GAP 7 (5-15); ASPARTATE AMINOTRANSFERASE 28 U/L (10-37); CALCIUM 7.9 mg/dL (8.4-11.0); CARBON DIOXIDE 33 mmol/L (23-29); CHLORIDE 106 mmol/L (98-107); CREATININE 0.81 mg/dL (0.55-1.30); GLUCOSE 131 mg/dL (74-106); POTASSIUM 3.4 mmol/L (3.5-5.1); SODIUM SERUM 146 mmol/L (136-145); TOTAL BILIRUBIN 0.8 mg/dL (0.0-1.0); TOTAL PROTEIN, SERUM 4.9 g/dL (6.4-8.3); UREA NITROGEN, BLOOD 14 mg/dL (8-21)
[2023-05-12 10:54] VITALS: O2SAT 99
[2023-05-12 11:02] VITALS: BP_SYST 152; PULSE 107; RESP 20; TEMP 98.7; O2SAT 99
[2023-05-12 16:00] VITALS: BP_SYST 130; PULSE 98; RESP 18; TEMP 98.5; O2SAT 98
[2023-05-12 20:45] VITALS: O2SAT 97
[2023-05-12] MEDS: METOPROLOL TARTRATE 50 MG TABLET PO SCH (22:02)
[2023-05-13 00:43] VITALS: BP_SYST 119; PULSE 91; RESP 16; TEMP 96.6; O2SAT 98
[2023-05-13 06:43] LABS: BASOPHILS % (AUTO) 0.7 % (0.0-2.0); EOSINOPHILS # (AUTO) 0.4 K/uL (0.0-0.4); EOSINOPHILS % (AUTO) 5.6 % (0.0-4.0); HEMATOCRIT 31.4 % (36-48); HEMOGLOBIN 10.4 g/dL (12.0-16.0); LYMPHOCYTES # (AUTO) 0.9 K/uL (1.0-5.5); LYMPHOCYTES % (AUTO) 13.9 % (20.5-51.5); MEAN CORPUSCULAR HEMOGLOBIN 32 pg (27-31); MEAN CORPUSCULAR HGB CONC 33 % (32-36); MEAN CORPUSCULAR VOLUME 96 fL (79.0-98.0); MONOCYTES # (AUTO) 0.6 K/uL (0.0-1.0); MONOCYTES % (AUTO) 8.7 % (1.7-9.3); NEUTROPHILS # (AUTO) 4.5 K/uL (1.8-7.7); NEUTROPHILS % (AUTO) 71.1 % (40.0-70.0); PLATELET COUNT (AUTO) 171 K/uL (130-430); RED BLOOD CELL COUNT(AUTO) 3.29 MIL/uL (4.2-6.2); RED CELL DISTRIBUTION WIDTH 19.6 % (9.0-15.0); WHITE BLOOD COUNT (AUTO) 6.4 K/uL (4.8-10.8)
[2023-05-13 07:05] LABS: ALANINE AMINOTRANSFERASE 13 U/L (12-78); ALBUMIN 1.7 g/dL (3.4-4.8); ANION GAP 7 (5-15); ASPARTATE AMINOTRANSFERASE 23 U/L (10-37); CARBON DIOXIDE 35 mmol/L (23-29); CHLORIDE 104 mmol/L (98-107); CREATININE 0.82 mg/dL (0.55-1.30); GLUCOSE 126 mg/dL (74-106); POTASSIUM 3.2 mmol/L (3.5-5.1); SODIUM SERUM 146 mmol/L (136-145); TOTAL BILIRUBIN 0.7 mg/dL (0.0-1.0); UREA NITROGEN, BLOOD 14 mg/dL (8-21)
[2023-05-13 08:00] VITALS: BP_SYST 145; PULSE 90; RESP 20; TEMP 97.6; O2SAT 98; O2SAT 99
[2023-05-13] MEDS: POTASSIUM CHLORIDE 20 MEQ/PKT PACKET PO SCH (09:52)
[2023-05-13] MEDS: PANTOPRAZOLE SODIUM 40 MG/VIAL (PROTONIX) IVP SCH (09:53)
[2023-05-13] MEDS: DIGOXIN 0.25 MG TABLET PO SCH (09:54)
[2023-05-13] MEDS: FUROSEMIDE 40 MG TABLET PO SCH (09:54)
[2023-05-13 11:07] VITALS: BP_SYST 114; PULSE 89; RESP 15; TEMP 97; O2SAT 95
[2023-05-13] MEDS: APIXABAN 2.5 MG TABLET PO ONE (13:24)
[2023-05-13] MEDS: D5W 500 ML IV ONE (14:55)
[2023-05-13 17:18] VITALS: BP_SYST 114; PULSE 89; RESP 15; TEMP 97; O2SAT 95
[2023-05-13 20:45] VITALS: BP_SYST 135; PULSE 85; RESP 16; TEMP 99.1; O2SAT 94
[2023-05-13] MEDS: APIXABAN 2.5 MG TABLET PO SCH (22:37)
[2023-05-14] VITALS: BP_SYST 139; PULSE 83; RESP 17; TEMP 97.6; O2SAT 98
[2023-05-14 06:47] LABS: ANION GAP 7 (5-15); CALCIUM 8.1 mg/dL (8.4-11.0); CARBON DIOXIDE 36 mmol/L (23-29); CHLORIDE 101 mmol/L (98-107); GLUCOSE 120 mg/dL (74-106); POTASSIUM 3.4 mmol/L (3.5-5.1); SODIUM SERUM 144 mmol/L (136-145); UREA NITROGEN, BLOOD 11 mg/dL (8-21)
[2023-05-14 08:00] VITALS: O2SAT 96
[2023-05-14 11:09] VITALS: BP_SYST 117; PULSE 90; RESP 15; TEMP 98; O2SAT 97
[2023-05-14 15:51] VITALS: BP_SYST 113; PULSE 67; RESP 17; TEMP 97.9; O2SAT 99
[2023-05-14 20:30] VITALS: BP_SYST 137; PULSE 75; RESP 18; TEMP 98.5; O2SAT 94
[2023-05-14 22:00] VITALS: O2SAT 95
[2023-05-15 01:00] VITALS: BP_SYST 119; PULSE 79; RESP 18; TEMP 98.5; O2SAT 94
[2023-05-15 06:44] LABS: BASOPHILS # (AUTO) 0.1 K/uL (0.0-0.2); BASOPHILS % (AUTO) 1.1 % (0.0-2.0); EOSINOPHILS # (AUTO) 0.4 K/uL (0.0-0.4); EOSINOPHILS % (AUTO) 6.9 % (0.0-4.0); HEMATOCRIT 33.9 % (36-48); HEMOGLOBIN 11.3 g/dL (12.0-16.0); LYMPHOCYTES % (AUTO) 16.7 % (20.5-51.5); MEAN CORPUSCULAR HEMOGLOBIN 32 pg (27-31); MEAN CORPUSCULAR HGB CONC 33 % (32-36); MEAN CORPUSCULAR VOLUME 96 fL (79.0-98.0); MONOCYTES # (AUTO) 0.5 K/uL (0.0-1.0); MONOCYTES % (AUTO) 7.6 % (1.7-9.3); NEUTROPHILS % (AUTO) 67.7 % (40.0-70.0); PLATELET COUNT (AUTO) 224 K/uL (130-430); RED BLOOD CELL COUNT(AUTO) 3.55 MIL/uL (4.2-6.2); RED CELL DISTRIBUTION WIDTH 19.9 % (9.0-15.0)
[2023-05-15 06:55] LABS: ALANINE AMINOTRANSFERASE 14 U/L (12-78); ALBUMIN 1.9 g/dL (3.4-4.8); ANION GAP 8 (5-15); ASPARTATE AMINOTRANSFERASE 23 U/L (10-37); CALCIUM 8.3 mg/dL (8.4-11.0); CARBON DIOXIDE 33 mmol/L (23-29); CHLORIDE 102 mmol/L (98-107); CREATININE 0.77 mg/dL (0.55-1.30); GLUCOSE 130 mg/dL (74-106); SODIUM SERUM 143 mmol/L (136-145); TOTAL BILIRUBIN 0.9 mg/dL (0.0-1.0); TOTAL PROTEIN, SERUM 5.4 g/dL (6.4-8.3); UREA NITROGEN, BLOOD 9 mg/dL (8-21)
[2023-05-15 08:00] VITALS: BP_SYST 125; PULSE 77; RESP 24; TEMP 98.6; O2SAT 95
[2023-05-15 12:00] VITALS: BP_SYST 117; PULSE 88; RESP 18; TEMP 98.8; O2SAT 96
[2023-05-15] MEDS ORDERED: METO-442 PO (14:21)
[2023-05-15] MEDS ORDERED: DIGO250T PO (14:21)
[2023-05-15] MEDS ORDERED: APIX2.5T PO (14:21)
[2023-05-15] MEDS ORDERED: FURO-149 PO (14:21)
[2023-05-15] MEDS ORDERED: LISI20TA30 PO (14:21)
[2023-05-15] MEDS ORDERED: APIX5TAB PO (14:21)
[2023-05-15] MEDS ORDERED: DOXY-244 PO (14:26)
[2023-05-15 14:37] VITALS: BP_SYST 117; PULSE 88; RESP 18; TEMP 98.8; O2SAT 96
[2023-05-15 16:00] VITALS: BP_SYST 107; PULSE 80; RESP 18; TEMP 97.8; O2SAT 96
== END 2023-05-15 14:48 | disposition home or self-care (01) | DRG 193 ==
LOC: SED 15:55 → STU 19:33 → SMU 05-12 12:55
PROVIDERS: ADMIT Preventive Medicine Preventive Medicine/Occupational Environmental Medicine; ATTEND Family Medicine
PROC: 0W993ZZ Drainage of Right Pleural Cavity, Percutaneous Approach (ICD-10-PCS; principal; 2023-05-09)
DX: J18.9 Pneumonia, unspecified organism (principal); E43 Unspecified severe protein-calorie malnutrition; I50.33 Acute on chronic diastolic (congestive) heart failure; J96.01 Acute respiratory failure with hypoxia; I82.431 Acute embolism and thrombosis of right popliteal vein; I82.441 Acute embolism and thrombosis of right tibial vein; F03.90 Unspecified dementia, unspecified severity, without behavioral disturbance, psychotic disturbance, mood disturbance, and anxiety; E87.6 Hypokalemia; D64.9 Anemia, unspecified; E88.09 Other disorders of plasma-protein metabolism, not elsewhere classified; E83.51 Hypocalcemia; E11.65 Type 2 diabetes mellitus with hyperglycemia; I11.0 Hypertensive heart disease with heart failure; Z66 Do not resuscitate; E78.00 Pure hypercholesterolemia, unspecified; I48.91 Unspecified atrial fibrillation; Z86.73 Personal history of transient ischemic attack (TIA), and cerebral infarction without residual deficits; Z86.718 Personal history of other venous thrombosis and embolism; Z68.28 Body mass index [BMI] 28.0-28.9, adult
CPT/HCPCS: 32555; 36415; 71045; 71275; 76376; 80048; 80053; 80076; 82947; 83605; 83735; 83880; 84100; 84157; 84484; 85025; 85610; 85651; 85730; 87040; 87081; 89051; 89060; 93005; 93306; 93971; 96365; 96375; 96376; 97110-GP; 97530-GP; 99291; C9113; G0378; J0696; J1160; J1940; J2543; J3490; J7060

== ENCOUNTER 2023-06-17 15:15 | Inpatient (IN) | payer OTHER ==
[~2023-06-17] VITALS: Ht 157.5 cm; Wt 56.7 kg
[2023-06-17 15:15] VITALS: BP_SYST 110; PULSE 64; RESP 18; TEMP 97; O2SAT 92
[~2023-06-17 15:15] MED LIST changes: +APIX2.5T PO; +APIX5TAB PO; -ASPIRIN; -BENA-6 PO; +DIGO250T PO; +DOXY-244 PO; +FURO-149 PO; +LISI20TA30 PO; +METO-442 PO
[2023-06-17] MEDS: ONDANSETRON HCL 4 MG/2 ML VIAL IVP ONE (17:03)
[2023-06-17] MEDS: MORPHINE 2 MG/ML INJ. SYRINGE IVP ONE (17:04)
[2023-06-17 17:17] LABS: BASOPHILS % (AUTO) 0.2 % (0.0-2.0); EOSINOPHILS % (AUTO) 0.1 % (0.0-4.0); HEMOGLOBIN 12.6 g/dL (12.0-16.0); LYMPHOCYTES # (AUTO) 0.7 K/uL (1.0-5.5); LYMPHOCYTES % (AUTO) 5.7 % (20.5-51.5); MEAN CORPUSCULAR HEMOGLOBIN 32 pg (27-31); MEAN CORPUSCULAR HGB CONC 33 % (32-36); MEAN CORPUSCULAR VOLUME 97 fL (79.0-98.0); MONOCYTES # (AUTO) 0.8 K/uL (0.0-1.0); NEUTROPHILS # (AUTO) 10.3 K/uL (1.8-7.7); PLATELET COUNT (AUTO) 280 K/uL (130-430); RED BLOOD CELL COUNT(AUTO) 3.93 MIL/uL (4.2-6.2); RED CELL DISTRIBUTION WIDTH 15.8 % (9.0-15.0); WHITE BLOOD COUNT (AUTO) 11.8 K/uL (4.8-10.8)
[2023-06-17 17:57] LABS: ALANINE AMINOTRANSFERASE 15 U/L (12-78); ALBUMIN 1.6 g/dL (3.4-4.8); ANION GAP 7 (5-15); ASPARTATE AMINOTRANSFERASE 50 U/L (10-37); CALCIUM 7.7 mg/dL (8.4-11.0); CARBON DIOXIDE 30 mmol/L (23-29); CHLORIDE 105 mmol/L (98-107); CREATININE 1.93 mg/dL (0.55-1.30); GLUCOSE 138 mg/dL (74-106); POTASSIUM 3.3 mmol/L (3.5-5.1); SODIUM SERUM 142 mmol/L (136-145); TOTAL BILIRUBIN 0.8 mg/dL (0.0-1.0); TOTAL PROTEIN, SERUM 5.2 g/dL (6.4-8.3); UREA NITROGEN, BLOOD 51 mg/dL (8-21)
[2023-06-17 18:11] LABS: BILIRUBIN,DIRECT 0.3 mg/dL (0.0-0.3); LIPASE 13 U/L (16-77)
[2023-06-17] MEDS ORDERED: DONE5TAB33 PO (19:10)
[2023-06-17] MEDS ORDERED: SIMV-343 PO (19:10)
[2023-06-17] MEDS ORDERED: BENA-6 PO (19:10)
[2023-06-17] MEDS ORDERED: FER300L PO (19:10)
[2023-06-17] MEDS ORDERED: METO-442 PO (19:10)
[2023-06-17] MEDS ORDERED: PANT40TA45 PO (19:10)
[2023-06-17] MEDS ORDERED: APIX2.5T PO (19:10)
[2023-06-17] MEDS ORDERED: CYAN25004 SL (19:10)
[2023-06-17] MEDS ORDERED: MOME45CR17 TP (19:10)
[2023-06-17] MEDS ORDERED: PHEDM120 PO (19:10)
[2023-06-17] MEDS ORDERED: PIPERACILLIN/TAZOBACTAM 3.375 GM/VIAL (ZOSYN) IV ONE (19:28)
[2023-06-17] MEDS: PIPERACILLIN/TAZO 3.375 GM in NS 50 ML IV ONE (19:30)
[2023-06-17] MEDS ORDERED: HYDROcodone/ACETAMIN 10-325 MG TAB PO PRN (22:15)
[2023-06-17] MEDS ORDERED: ACETAMINOPHEN 325 MG TABLET PO PRN (22:15)
[2023-06-17] MEDS ORDERED: MORPHINE 2 MG/ML INJ. SYRINGE IVP PRN (22:15)
[2023-06-17] MEDS ORDERED: HYDROcodone/ACETAMIN 5-325 MG TAB (NORCO/ VICODIN) PO PRN (22:15)
[2023-06-17] MEDS: NACL 0.9% 1,000 ML IV ONE ×2 (22:28→22:30)
[2023-06-17] MEDS: DIGOXIN 0.25 MG TABLET PO SCH (22:37)
[2023-06-18] MEDS: NACL 0.9% 1,000 ML IV ONE (00:47)
[2023-06-18 03:16] LABS: BILIRUBIN,URINE 2+ (NEGATIVE); BLOOD, URINE 3+ (NEGATIVE); COLOR,URINE BROWN (YELLOW); GLUCOSE,URINE NEGATIVE (NEGATIVE); KETONES,URINE TRACE (NEGATIVE); LEUKOCYTE ESTERASE ,URINE 2+ (NEGATIVE); NITRITE, URINE NEGATIVE (NEGATIVE); PH,URINE 5.5 (5.0-8.0); PROTEIN URINE 2+ (NEGATIVE); UROBILINOGEN,URINE 0.2 (0.2-1.0)
[2023-06-18 03:19] LABS: CLARITY/URINE TURBID (CLEAR)
[2023-06-18 03:26] LABS: BACTERIA,URINE MODERATE /HPF (None Seen); RBC,URINE >100 /HPF (0-3); WBC,URINE >100 /HPF (0-3)
[2023-06-18] MEDS: ONDANSETRON HCL 4 MG/2 ML VIAL IVP PRN (04:05)
[2023-06-18] MEDS: METOPROLOL TARTRATE 5 MG/5 ML VIAL IVP PRN (04:39)
[2023-06-18 06:10] LABS: BASOPHILS % (AUTO) 0.3 % (0.0-2.0); EOSINOPHILS # (AUTO) 0.1 K/uL (0.0-0.4); EOSINOPHILS % (AUTO) 0.7 % (0.0-4.0); HEMATOCRIT 37.9 % (36-48); HEMOGLOBIN 12.5 g/dL (12.0-16.0); LYMPHOCYTES # (AUTO) 0.5 K/uL (1.0-5.5); LYMPHOCYTES % (AUTO) 4.7 % (20.5-51.5); MEAN CORPUSCULAR HEMOGLOBIN 32 pg (27-31); MEAN CORPUSCULAR HGB CONC 33 % (32-36); MEAN CORPUSCULAR VOLUME 98 fL (79.0-98.0); MONOCYTES # (AUTO) 0.8 K/uL (0.0-1.0); MONOCYTES % (AUTO) 6.8 % (1.7-9.3); NEUTROPHILS # (AUTO) 10.1 K/uL (1.8-7.7); NEUTROPHILS % (AUTO) 87.5 % (40.0-70.0); PLATELET COUNT (AUTO) 272 K/uL (130-430); RED BLOOD CELL COUNT(AUTO) 3.88 MIL/uL (4.2-6.2); WHITE BLOOD COUNT (AUTO) 11.6 K/uL (4.8-10.8)
[2023-06-18 06:41] LABS: ALANINE AMINOTRANSFERASE 11 U/L (12-78); ALBUMIN 1.5 g/dL (3.4-4.8); ANION GAP 14 (5-15); ASPARTATE AMINOTRANSFERASE 53 U/L (10-37); CALCIUM 7.8 mg/dL (8.4-11.0); CARBON DIOXIDE 24 mmol/L (23-29); CHLORIDE 107 mmol/L (98-107); CREATININE 2.07 mg/dL (0.55-1.30); GLUCOSE 137 mg/dL (74-106); POTASSIUM 3.7 mmol/L (3.5-5.1); SODIUM SERUM 145 mmol/L (136-145); TOTAL BILIRUBIN 0.7 mg/dL (0.0-1.0); TOTAL PROTEIN, SERUM 4.9 g/dL (6.4-8.3); UREA NITROGEN, BLOOD 49 mg/dL (8-21)
[2023-06-18 08:53] LABS: INR 1.3 (0.8-1.2); PROTHROMBIN TIME 12.9 SECS (9.5-12.5)
[2023-06-18] MEDS ORDERED: SIMVASTATIN 20 MG TABLET PO SCH (09:00)
[2023-06-18] MEDS ORDERED: DIGOXIN IMMUNE FAB IV ONE ×2 (09:15→11:40)
[2023-06-18] MEDS ORDERED: NS IV ONE (09:15)
[2023-06-18] MEDS ORDERED: MOME17SP12 NAS (10:12)
[2023-06-18] MEDS ORDERED: FERR-69 PO (10:12)
[2023-06-18 12:44] VITALS: BP_SYST 127; PULSE 70; RESP 16; TEMP 97; O2SAT 96
[2023-06-18] MEDS ORDERED: DONEPEZIL HCL 5 MG TABLET (ARICEPT) PO SCH (21:00)
[2023-06-19 01:59] VITALS: BP_SYST 130; PULSE 74; RESP 17; TEMP 97.6; O2SAT 97
== END 2023-06-18 14:10 | DRG 441 ==
LOC: SED 15:15 → STU 22:08
PROVIDERS: ADMIT Family Medicine; ATTEND Family Medicine
DX: K75.0 Abscess of liver (principal); E43 Unspecified severe protein-calorie malnutrition; J96.21 Acute and chronic respiratory failure with hypoxia; N17.9 Acute kidney failure, unspecified; I48.20 Chronic atrial fibrillation, unspecified; E87.20 Acidosis, unspecified; N39.0 Urinary tract infection, site not specified; I13.0 Hypertensive heart and chronic kidney disease with heart failure and stage 1 through stage 4 chronic kidney disease, or unspecified chronic kidney disease; T46.0X5A Adverse effect of cardiac-stimulant glycosides and drugs of similar action, initial encounter; I50.9 Heart failure, unspecified; G30.9 Alzheimer's disease, unspecified; F02.80 Dementia in other diseases classified elsewhere, unspecified severity, without behavioral disturbance, psychotic disturbance, mood disturbance, and anxiety; E78.00 Pure hypercholesterolemia, unspecified; R74.01 Elevation of levels of liver transaminase levels; Z66 Do not resuscitate; E11.22 Type 2 diabetes mellitus with diabetic chronic kidney disease; N18.9 Chronic kidney disease, unspecified; Z86.73 Personal history of transient ischemic attack (TIA), and cerebral infarction without residual deficits; Z86.718 Personal history of other venous thrombosis and embolism; Z79.01 Long term (current) use of anticoagulants; Z87.11 Personal history of peptic ulcer disease; Z68.22 Body mass index [BMI] 22.0-22.9, adult
CPT/HCPCS: 36415; 71045; 76705; 80048; 80053; 80076; 80162; 81000; 81001; 81015; 82948; 83605; 83690; 83880; 84484; 85025; 85610; 87040; 87081; 87086; 93005; 94760; 96361; 96365; 96375; 97530-GP; 99291; G0378; J1162; J2270; J2405; J2543; J3490